=== PATIENT | female | born 1950 | race African-American/Black ===

== ENCOUNTER 2016-07-10 14:24 | Inpatient (IN) | payer OTHER ==
[~2016-07-10] VITALS: Ht 172.7 cm; Wt 121.3 kg
--- NOTE | ~2016-07-10 | HC ---
[facility] [place] [address] CONSULTATION Name: CYNTHIA FRANCOTA Room #: [address] [place] [address] IN M.R.#: [id number] Admission: 07/10/16 Attend Phys: Lida Dang MD Discharge: 07/12/16 Date of : 48 Report #: [id number] THIS REPORT FOR: //name// CC: Melina Dang DATE OF SERVICE: 07/11/2016 REASON FOR CONSULTATION: Status post kidney transplantation. REASON FOR PRESENTATION: Shortness of breath. HISTORY OF PRESENT ILLNESS: The patient is well known to me. She is a 66-year-old with past medical history of cadaveric renal transplantation in 2007. She is known to have chronic kidney disease with a baseline creatinine of around 2. She had end-stage renal disease due to diabetes mellitus. She had presented to the hospital numerous times in the past with urinary tract infections, fluid overload. She tells me that she has been having shortness of breath for the last few weeks. She also has gain significant some weight, her dry body weight is anywhere from 250-252, and her weight on presentation yesterday was 268. She noticed orthopnea. She also noticed excessive lower extremity edema. She has extensive past medical history including not limited to end-stage renal disease, renal transplantation, left ventricular hypertrophy with the last echo shows an ejection fraction around 60%. She tells me that she visited with the [facility] couple of months ago and she was taken off the spironolactone as she was extremely dehydrated. I was consulted to manage her CKD. On presentation to the emergency room, she was found to be in pulmonary edema and she was also found to have an elevated blood pressure, was admitted for further evaluation and management. PAST MEDICAL HISTORY: 1. Status post kidney transplantation cadaveric in 2007. 2. Diabetes mellitus. 3. Hypertension. 4. Repeat urinary tract infections. 5. AFib. 6. Status post abdominal lab weight loss surgery. 7. Abdominal wound infection and empyema, requiring thoracotomy. PAST SURGICAL HISTORY: 1. Status post thyroidectomy. 2. Hysterectomy. 3. Status post left AV fistula. 4. Previous right hemorrhagic stroke. 5. Obstructive sleep apnea. [facility] [address] [place] [address] CONSULTATION Name: ERIC FRANCO Room #: 205-P [facility] IN M.R.#: [id number] Admission: 07/10/16 Attend Phys: Lida Dang MD Discharge: 07/12/16 Date of : 48 Report #: [id number] ALLERGIES: SULFA, CODEINE, GABAPENTIN intolerance. SOCIAL HISTORY: She is a nonsmoker. No drug or alcohol abuse. MEDICATIONS: Reported medications: 1. Sodium bicarbonate. 2. NovoLog insulin: 3. Metoprolol. 4. Amiodarone. 5. Mycophenolate. 6. Tacrolimus. 7. Lisinopril. 8. Torsemide. 9. Levothyroxine. 10. Atorvastatin. 11. She has been taken off the spironolactone. REVIEW OF SYSTEMS: CONSTITUTIONAL: No fever or chills. CARDIOVASCULAR: Significant for orthopnea, dyspnea on exertion, shortness of breath. PULMONARY: No cough or hemoptysis. GASTROINTESTINAL: Significant weight gain. GENITOURINARY: No frequency, no urgency. MUSCULOSKELETAL: No back pain. NEUROLOGICAL: No headache, no dizziness. PHYSICAL EXAMINATION: GENERAL: The patient is alert, oriented, in no apparent distress. VITAL SIGNS: Most recent vital signs shows a blood pressure of 172/61, temperature 36.6, bedside pulse ox 91 on 2 liters by nasal cannula. HEAD AND NECK: No jugular venous distention, no bruit, no thyromegaly. CHEST: Decreased air entry bilaterally. CARDIOVASCULAR: Regular with no rub detected. ABDOMEN: Soft, nontender with no hepatosplenomegaly. LOWER EXTREMITIES: +3 edema. There is a right-sided posterior right chest wall lipoma. LABORATORY VALUES: Reviewed. Creatinine is a baseline at 2.2, potassium slightly low at 3.4. TSH with an elevated value at 4.1. Chest x-ray reviewed, mild pulmonary congestion is noted. ASSESSMENT, IMPRESSION, PLAN: 1. Pulmonary edema. [address] [address] CONSULTATION Name: ERIC FRANCO Room #: [facility] IN M.R.#: [id number] Admission: 07/10/16 Attend Phys: Lida Dang MD Discharge: 07/12/16 Date of : 48 Report #: [id number] 2. Significant fluid gain. 3. Hypertension urgency. 4. Hypokalemia. 5. Status post disease donor kidney transplantation. 6. Chronic kidney disease with a baseline creatinine of around 2.2. 7. Hypokalemia. 8. Diabetes mellitus. 9. The patient had very significant weight gain in the last few weeks. I agree with the Lasix IV for now if needed, we will switch to IV Lasix drip. 10. Daily body weight. 11. Resume her spironolactone. 12. Obtain a cardiac echo. 13. Resume her blood pressure medications. 14. Low salt diet. 15. Fluid restriction. 16. Resume all of her diabetic medications. 17. Maintained on current immune suppressive medications including CellCept and tacrolimus. 18. Resume her thyroid replacement. 19. From the renal perspective, she seems to be at her baseline when it comes to the kidney function; however, she will need further augmentation of her fluids and extracellular fluid volume expansion, status. <ELECTRONICALLY SIGNED> By: Manoj Hudson MD 07/15/16 0745 [id number] [id number] Fredy Brand MD /nt
--- NOTE | ~2016-07-10 | 2DMMODE ---
[facility] [place] [address] 2 D/M-MODE ECHOCARDIOGRAM Name: JOANERIC Room #: 205-P ADM IN M.R.#: [id number] Admission: 07/10/16 Attend Phys: Lida Dang Discharge: Date of : 48 Date of Service: 07/11/16 1222 Report #: [id number] THIS REPORT FOR: //name// APPROVED REPORT EXAM: Comprehensive 2D, Doppler, and color-flow Echocardiogram Patient Location: Bedside/Room 205 Blood Pressure: 172/61 mmHg HR: 65 bpm Rhythm: NSR Other Information Study Quality: Adequate Indications Dyspnea Congestive Heart Failure Hx: Afib, HTN, CVA, DM, morbid obesity 2D Dimensions RVDd: 41.79 mm LVEF(%): 57.82 (>50%) IVSd: 15.04 (7-11mm) LVOT Diam: 19.07 (18-24mm) LVDd: 47.41 mm PWd: 15.01 (7-11mm) Ascending Aorta: 30.57 mm LVDs: 32.98 (25-40mm) IVC: 24.00 mm Aortic Root: 30.00 mm Hernandez's LVEF: 57.82 % Volumes Left Atrial Volume (Systole) Single Plane 4CH: 89.96 mL Single Plane 2CH: 98.06 mL LA ESV Index: 43.00 mL/m2 Aortic Valve AoV Peak Paulie.: 2.32 m/s AO Peak Gr.: 21.57 mmHg LV Max P.75 mmHg LV Max: 1.56 m/s Mitral Valve MV PHT: 51.55 ms MV E Max Paulie.: 1.24 m/s E/A Ratio: 1.4 MV A Paulie.: 0.87 m/s MV Decel. Time: 177.76 ms [facility] [place] [address] 2 D/M-MODE ECHOCARDIOGRAM Name: ERIC FRANCO Room #: 205-P [facility] IN M.R.#: [id number] Admission: 07/10/16 Attend Phys: Lida Dang Discharge: Date of : 48 Date of Service: 07/11/16 1222 Report #: [id number] TDI E/Lateral E': 19.00 E/Medial E': 29.00 Pulmonary Valve PV Peak Paulie.: 1.23 m/s PV Peak Gr.: 6.05 mmHg Tricuspid Valve TR Peak Paulie.: 3.43 m/s RAP Estimate: 10.00 mmHg TR Peak Gr.: 47.00 mmHg RVSP: 57.00 mmHg Left Ventricle The left ventricle is normal size. There is normal LV segmental wall motion. Moderate concentric left ventricular hypertrophy. The left ventricular systolic function is normal. LVEF is 65%. Grade II - pseudonormal filling dynamics. Right Ventricle Right ventricle is borderline dilated. The right ventricular systolic function is normal. Atria Left atrium is moderately dilated. Right atrium is borderline dilated. Aortic Valve Aortic valve is calcified. Trace aortic regurgitation. There is no aortic valvular stenosis. Mitral Valve Mitral valve leaflets are thickened. Mild mitral annular calcification. Mild to moderate mitral regurgitation. Tricuspid Valve The tricuspid valve is normal in structure. There is mild tricuspid regurgitation. The right atrial pressure is estimated at 10 mmHg. There is moderate pulmonary hypertension with an estimated PAP of 57mmHg. Pulmonic Valve Pulmonic valve is not well visualized. Mild pulmonic regurgitation. Great Vessels The aortic root is normal in size. IVC is dilated and collapses >50% with inspiration. [facility] [address] [place] [address] 2 D/M-MODE ECHOCARDIOGRAM Name: FRANCOERCI Room #: [address] [place] [address] IN M.R.#: [id number] Admission: 07/10/16 Attend Phys: Lida Dang Discharge: Date of : 48 Date of Service: 07/11/16 1222 Report #: [id number] Pericardium There is no pericardial effusion. Right pleural effusion noted. <Conclusion> The left ventricle is normal size. Moderate concentric left ventricular hypertrophy. LVEF is 65%. Right ventricle is borderline dilated. Left atrium is moderately dilated. Right atrium is borderline dilated. Aortic valve is calcified. Trace aortic regurgitation. Mitral valve leaflets are thickened. Mild mitral annular calcification. Mild to moderate mitral regurgitation. There is mild tricuspid regurgitation. The right atrial pressure is estimated at 10 mmHg. There is moderate pulmonary hypertension with an estimated PAP of 57mmHg. <ELECTRONICALLY SIGNED> By: Mateo Hong MD 07/11/16 1222 122 122 Mateo Hong MD /INF
--- NOTE | ~2016-07-10 | HC ---
[facility] [place] [address] CONSULTATION Name: ERIC FRANCO Room #: [facility]- ADM IN M.R.#: [id number] Admission: 07/10/16 Attend Phys: Lida Dang MD Discharge: Date of : 48 Report #: [id number] THIS REPORT FOR: //name// CC: CONCEPCION Dang DATE OF SERVICE: 07/11/2016 HISTORY OF PRESENT ILLNESS: The patient is a 66-year-old single black female last seen in the hospital after she complained of being short of breath. The patient has an extensive and complicated past medical history. She has a long history of diabetes and hypertension. She was on hemodialysis for 4 years using the fistula in the left arm. However, she eventually underwent cadaveric renal transplant at [facility] in 2007. She has been diagnosed with hypertrophic cardiomyopathy in the past. Previous heart catheterization in 2007 apparently showed no significant coronary artery disease. She has been followed by my partner, Dr. Dagoberto Ryan. She has a history of paroxysmal atrial fibrillation and has been on chronic amiodarone. She last saw Dr. Ryan in the cardiology clinic last January when she was doing well. She is not very active. She also has a history of obesity. She weighed over 300 pounds. She apparently had lap band surgery in in the past and subsequently taken down. She does have a history of sleep apnea, but does not use CPAP. She has not been hospitalized since a year ago when she was admitted with urinary tract infection. The patient states that recently she had a cough and shortness of breath. She was felt to have flu. Because of increasing shortness of breath she finally came to the hospital yesterday and was admitted. She does have chest tightness, although it is not exertional. She notes occasional episodes where heart rate will increase, but she has had no syncope. PAST MEDICAL HISTORY: Otherwise significant for left thoracotomy for empyema in 2013. She had a hysterectomy, thyroidectomy that showed cancer. She has hypertension, diabetes, hyperlipidemia, hypertrophic cardiomyopathy, sleep apnea. MEDICATIONS: Consists of amiodarone, metoprolol, lisinopril, Lipitor, torsemide, aspirin, ranitidine, allopurinol, Singulair inhaler, insulin, Synthroid, ProAir, omeprazole, Prograf. ALLERGIES: SHE HAS ALLERGY TO PENICILLIN, CODEINE. FAMILY HISTORY: Her mother and brother suddenly. SOCIAL HISTORY: She is . Lives by herself in [place], [place]. She used to work for [employer]. No smoking or alcohol abuse. [facility] [address] [place] [address] CONSULTATION Name: ERIC FRANCO Room #: 205-P ADM IN M.R.#: [id number] Admission: 07/10/16 Attend Phys: Lida Dang MD Discharge: Date of : 48 Report #: [id number] REVIEW OF SYSTEMS: She apparently has had a stroke in the past with some left-sided leg weakness. She has no history of asthma. She does have sleep apnea. She has had a peptic ulcer. No liver disease. She has a history of renal transplant in the past. She had thyroid cancer. PHYSICAL EXAMINATION: GENERAL: Revealed an obese middle-aged black female lying in bed. She appeared in no distress. VITAL SIGNS: When she was admitted yesterday, she had a blood pressure of 200/80, pulse of 70, she was afebrile. HEENT: She was anicteric. Conjunctivae pink. Mucous membranes moist. NECK: Veins nondistended. ____ systolic murmur noted in the carotids. CHEST: Clear to auscultation. CARDIAC: Regular rate and rhythm, grade 3 systolic ejection murmur. ABDOMEN: Obese, soft, nontender. EXTREMITIES: Had 1+ pitting edema. Dorsalis pedis pulse could not be palpated. SKIN: Cool and dry. RADIOLOGICAL DATA: ECG showed a sinus rhythm, nonspecific ST and T-wave changes. Her workup yesterday, she had a chest x-ray that showed cardiomegaly, atelectasis, pleural effusions, mild pulmonary edema. LABORATORY DATA: She had sodium 145, potassium 3.4. Her BUN was 44, creatinine 2.2, glucose 109, magnesium 1.4, albumin 2.3. Troponin 0.04. BNP 5744. Her white blood cell count 6.7, hemoglobin 9.7, platelet count 354,000. IMPRESSION AND RECOMMENDATIONS: 1. Pulmonary edema. I would attempt diuresis. I would recommend a repeat echocardiogram. 2. History of atrial fibrillation, currently in sinus rhythm. I am concerned that the interstitial infiltrates likely represent interstitial lung disease. If interstitial infiltrates persist, I will consider discontinuing the amiodarone. The patient does not appear to be a very good candidate for a contrast study of her lung because of her chronic kidney disease. 3. Hypertension. The patient is on an SATHISH inhibitor and beta noelle. 4. Hyperlipidemia. The patient is on a statin drug. 5. Diabetes. 6. Previous cadaveric renal transplant. The patient has chronic kidney disease. The patient is followed by nephrology. 7. Chronic immunosuppression. 8. Hypertrophic cardiomyopathy. Recommend repeat echocardiogram. There is a family history of sudden , although the patient does not appear to be a very good candidate for defibrillator because of her multiple medical problems. 9. History of sleep apnea. The patient is not using her CPAP. 10. History of morbid obesity. Previous lap band surgery. 11. History of thyroid cancer. [facility] [address] [place] [address] CONSULTATION Name: ERIC FRANCO Room #: 205-P [facility] IN M.R.#: [id number] Admission: 07/10/16 Attend Phys: Lida Dang MD Discharge: Date of : 48 Report #: [id number] 12. Anemia. No history of bleeding. 13. Previous stroke. By: [id number] Miki Aguiar MD, FACC /nt
--- NOTE | ~2016-07-10 | H ---
[facility] [place] [place] [address] HISTORY AND PHYSICAL Name: ERIC FRANCO Room #: 205-P ADM IN M.R.#: [id number] Admission: 07/10/16 Attend Phys: Lida Dang MD Discharge: Date of : 48 Report #: [id number] THIS REPORT FOR: //name// CC: Melina Dang DATE OF SERVICE: 07/10/2016 CHIEF COMPLAINT: Shortness of breath. HISTORY OF PRESENT ILLNESS: The patient is a 66-year-old female with multiple medical problems, including chronic hypertension, chronic kidney disease, status post kidney transplant, who comes to the hospital with 2-day duration of shortness of breath. The patient also developed chest pressure. In the emergency room, she was found to have pulmonary edema on chest x-ray. The patient had undetectable Troponin, and unremarkable EKG. She was started on Lasix, and her condition started to improve. Her blood pressure was also found to be 217/67. Currently, the patient's condition is better. Her breathing has improved. She is not in respiratory distress. She feels more comfortable, and chest pressure has resolved. Last cardiac echo available to us, it is from 2013, that showed normal ejection fraction. PAST MEDICAL HISTORY: 1. End-stage renal disease, status post kidney transplant 9 years ago. 2. History of paroxysmal atrial fibrillation. 3. Diabetes mellitus type 2, chronically out of control. 4. Hypertension. 5. Morbid obesity. 6. History of CVA with residual left-sided weakness. 7. Oates's palsy , history of left facial weakness. 8. COPD. 9. Obstructive sleep apnea. 10. Gout. 11. Asthma. 12. Status post thyroidectomy for goiter, on thyroid replacement. CURRENT MEDICATIONS: Reviewed and documented in the patient's chart. Please refer to the medication reconciliation section. FAMILY HISTORY: Reviewed and not pertinent to the patient's current condition. [facility] [address] [place] [address] HISTORY AND PHYSICAL Name: ERIC FRANCO Room #: [address] [place] [address] [place] [facility].#: [id number] Admission: 07/10/16 Attend Phys: Lida Dang MD Discharge: Date of : 48 Report #: [id number] SOCIAL HISTORY: The patient is a smoker. She does not drink alcohol. REVIEW OF SYSTEMS: As above in HPI section, all others negative. PHYSICAL EXAMINATION: GENERAL: The patient is an elderly female who is in no apparent distress. VITAL SIGNS: Blood pressure is 217/67, heart rate is 87, respiration is 16, and temperature is 97.3. HEENT: Pupils are equal. Eye movements are normal. Sclerae are anicteric. Oral mucosa is moist. NECK: The patient is status post thyroidectomy. No neck masses are palpated. The patient has JVD. Carotid bruits are not appreciated. RESPIRATORY: Chest moves symmetrically with breathing. The patient has fine crackles at the bases. CARDIOVASCULAR: The patient has regular rhythm and rate. I cannot appreciate murmurs, gallops, or rubs. GASTROINTESTINAL: Abdomen is soft, nondistended and nontender. Bowel sounds are present. Hepatomegaly or splenomegaly is not palpated. EXTREMITIES: The patient has 2+ pitting edema on the legs. Range of motion is normal. NEUROLOGIC: The patient is alert and oriented x3. Her examination is nonfocal. SKIN: The patient has no skin lesions. Skin is dry and warm. LABORATORY DATA: Hemoglobin is chronically low, currently at 9.8. White count is normal. Creatinine is 1.7, which is the patient's baseline. Urinalysis shows findings suggestive of UTI. On EKG, the patient has normal sinus rhythm, without acute ST segment changes. ASSESSMENT AND PLAN: 1. Congestive heart failure exacerbation. The patient is already started on Lasix, and nitroglycerin paste. Diuresis and oxygen will be continued. Blood pressure will be lowered. As noted, the patient already feels better. We will obtain cardiac echo. The patient's real estate attorney is already notified. Consultation is very much appreciated. 2. Accelerated hypertension. Again, the patient is on nitro paste. She had chest pressure earlier, that has resolved. Troponin is undetectable, and EKG shows no acute findings. We will use hydralazine, and we will consider Cardene drip, if the patient's condition does not improve soon. 3. Diabetes mellitus type 2, reportedly out of control. We are checking hemoglobin A1c. Home insulin regimen will be resumed. 4. Hypothyroidism, status post thyroidectomy years ago for goiter, replaced with levothyroxine. We will check TSH to evaluate adequacy of thyroid hormone replacement. 5. Status post kidney transplant about 9 years ago. Outpatient medications will be continued. The patient is on antirejection drugs. Her creatinine is at baseline and stable, 1.7. [facility] [address] [place] [address] HISTORY AND PHYSICAL Name: ERIC FRANCO Room #: 205-P ADM IN Miguel#: [id number] Admission: 07/10/16 Attend Phys: Lida Dang MD Discharge: Date of : 48 Report #: [id number] 6. Deep venous thrombosis prophylaxis. We will use renally readjusted subQ Lovenox. By: [id number] Lida Dang MD /nt
--- NOTE | ~2016-07-10 | EKG ---
[address] [address] ELECTROCARDIOGRAM REPORT Name: ERIC FRANCO Room #: 205- ADM IN M.R.#: [id number] Admission: 07/10/16 Attend Phys: Lida Dang MD Discharge: Date of : 48 Report #: [id number] THIS REPORT FOR: //name// [facility] ED Test Date: 2016-07-10 Test Time: 14:40:02 Pat Name: ERIC FRANCO Department: Room: [facility] Gender: F Tooling Manager: BECKY : 1950 Requested By: Trav Ortiz Order Number: [id number] MD: Pritesh Chase Measurements Intervals [place] Rate: 70 P: -4 VA: 192 QRS: 23 QRSD: 100 T: -64 QT: 434 QTc: 469 Interpretive Statements Sinus rhythm Nonspecific ST and T wave abnormality Baseline wander in lead(s) II,III,aVF Compared to ECG 04/11/2016 21:32:29 No significant change was found Electronically Signed On 07-11-2016 8:24:19 CDT by Pritesh Chase [email or web address] <ELECTRONICALLY SIGNED> By: Pritesh Chase MD, [facility] 07/11/16 0824 1440 1440 Pritesh Chase MD, [facility] /EPI
[~2016-07-10 14:24] MED LIST: ACETAMINOPHEN500 M1 PO; ADULT LOW DOSE81 MG PO; ADVAIR HFA115 MCG/21 INH; ALDACTONE25 MG PO; ALLOPURINOL 10100 M1 PO; ALLOPURINOL 10100 M2 PO; AMIODARONE PO; AMLODIPINE BESYL5 MG PO; ANTACID600 MG PO; ANTACID650 MG PO; APAP500 PO; ASPIRIN EC325 M1 PO; ASPIRIN325 PO; ATIVAN1 MG PO; ATORVASTATIN CA40 MG PO; B-12250 MCG PO; BAYER CHEWABLE81 MG PO; BISACODYL SUPP10 MG RECTAL; CALCIUM 1,0001 EACH PO; CATAPRES-TTS 10.1 MG; CEFTIN 250 MG250 MG PO; CEFTRIAXON1 GM/50 ML IV; CELLCEPT 250 M250 M1 PO; CELLCEPT 250 M250 MG PO; CELLCEPT500 MG PO; CIPRO250 MG/51 PO; CLARITIN10 MG PO; CLONAZEPAM 1 MG1 M1 PO; CLONIDINE0.1 PO; COLACE100 MG PO; COLCHICINE PO; DELTA D3400 UNIT PO; DEMADEX20 MG PO; DILTIAZEM 24HR180 M1 PO; DILTIAZEM 24HR240 M1 PO; DURICEF PO; ELEMENTAL CALC600 MG PO; FAMOTIDINE 20 M20 MG PO; FLEXERIL PO; FLONASE 0.05%50 MCG NASAL; FLONASE16 GM INH; HEARTBURN RELIE75 M1; HECORIA0.5 MG PO; HECORIA1 MG PO; HYDROCERIN CREA1 JAR TOP; HYDROCHLOROTHIA25 M1 PO; HYDROCODON-ACE1 EAC7 PO; K-DUR 20 MEQ T20 MEQ PO; LANSOPRAZOLE30 M1 PO; LANTUS SUBQ; LANTUSSOLASTAR; LEVAQUIN 250 M250 MG PO; LEVEMIR SUBQ; LEVOTHYROXIN0.112 M1 PO; LEVOTHYROXIN0.125 M1 PO; LEVOTHYROXIN0.137 M1 PO; LEVOTHYROXINE 0.1 MG PO; LEVOTHYROXINE0.2 M1 PO; LIDODERM 5%1 PATC1 TRANSDERM; LIDODERM 5%1 PATCH TRANSDERM; LIPITOR 20 MG T20 M1 PO; LISINOPRIL20 MG PO; LISINOPRIL40 MG PO; LOPRESSOR100 MG PO; LORTAB 7.5-3251 EACH PO; LOTRISONE CREAM15 GM TP; MACRODANTIN100 MG PO; MEVACOR40 MG PO; MULTI VITAMIN1 EACH PO; MULTIVITAMINS PO; MULTIVITAMINS1 EAC7 PO; NORVASC 5 MG TAB5 MG PO; NORVASC10 MG PO; NOVOLOG100 UNIT/1 SQ; NOVOLOG100 UNIT/1 SUBQ; NYSTATIN 1100000 U/M SW&SWALLOW; NYSTATIN 1100000 U/M SWISH&SPIT; OMEPRAZOLE 20 M20 MG PO; OMEPRAZOLE20 M2 PO; PACERONE 200 M200 M1 PO; PAIN & FEVER325 MG PO; PHENADOZ25 MG RC; PHENERGAN 25 MG25 M1 PO; PRAVACHOL40 MG PO; PRINIVIL40 MG PO; PROAIR HFA8.5 GM; PROAIR HFA8.5 GM INH; PROGRAF1 MG PO; PROTONIX 20 MG20 MG; PROTONIX40 M2 PO; PULMICORT0.25 MG/1 INH; RANITIDINE 150150 M1 PO; RANITIDINE 150150 MG PO; SINGULAIR 10 MG10 M1 PO; SLOW RELEASE I142 M1 PO; SYMBICORT160 MCG/4. INH; SYMBICORT80 MCG/4.1 INH; SYNTHROID125 MCG PO; TACROLIMUS1 MG PO; TOPROL XL100 MG PO; TOPROL XL50 MG; TOPROL XL50 MG PO; TORSEMIDE20 MG PO; TYLENOL325 MG PO; ULTRAM 50MG TAB50 MG PO; VITAMIN B-12100 MC1 PO; VITAMIN B-12250 MC2 PO; VITAMIN B-12250 MCG PO; VITAMIN D1000 UNI1 PO; VITAMIN D22000 UNIT PO; VITAMIN D32000 UNI1 PO; ZANTAC 150MG T150 M1 PO; ZANTAC 150MG T150 MG PO
[2016-07-10 14:29] VITALS: BP 231/78
[2016-07-10 15:53] LABS: ABSOLUTE NEUTROPHILS 4.8 thou/uL (1.4-8.2); BASOPHILS 0.5 % (0.0-2.0); HEMATOCRIT 31.8 % (37.0-47.0); HEMOGLOBIN 9.8 gm/dL (12.0-15.0); LYMPHOCYTES 14.7 % (24.0-44.0); MCHC 30.9 g/dL (28.0-37.0); MCV 84.3 fL (80.0-100.0); MONOCYTES 9.7 % (1.0-8.0); PLATELET COUNT 298 thou/uL (150-400); POLYS 74.1 % (36.0-66.0); RBC 3.77 mil/uL (4.20-5.00); RDW 16.9 % (10.5-14.5); WBC 6.4 thou/uL (4.0-11.0)
[2016-07-10 15:58] LABS: MANUAL DIFF NO
[2016-07-10 16:05] LABS: ANION GAP 11 mmol/L (7-16); BUN 38 mg/dL (7-18); CALCIUM 7.2 mg/dL (8.5-10.1); CHLORIDE 114 mmol/L (98-107); CO2 18 mmol/L (21-32); CREATININE 1.7 mg/dL (0.6-1.3); GLUCOSE 337 mg/dL (70-99); POTASSIUM 3.6 mmol/L (3.5-5.1); SODIUM 143 mmol/L (136-145)
[2016-07-10 16:16] LABS: ALBUMIN 2.3 g/dL (3.4-5.0); ALKALINE PHOSPHATASE 78 U/L (46-116); MAGNESIUM 1.4 mg/dL (1.8-2.4); NT-PRO BRAIN NAT PEPTIDE 4494 pg/mL (<300); SGOT 17 U/L (15-37); SGPT 12 U/L (30-65); TOTAL BILIRUBIN 0.5 mg/dL (<0.1-1.0); TOTAL PROTEIN 5.1 g/dL (6.4-8.2); TROPONIN-I < 0.04 ng/mL (<0.04-0.07)
[2016-07-10 18:05] VITALS: BP 217/67
[2016-07-10 19:42] VITALS: BP 170/55
[2016-07-10 23:40] VITALS: BP 211/85
[2016-07-11 01:07] LABS: GLYCOHEMOGLOBIN (HGB A1C) 8.6 % (4.8-5.6)
[2016-07-11 03:38] VITALS: BP 160/56
[2016-07-11 04:13] LABS: HEMATOCRIT 30.6 % (37.0-47.0); HEMOGLOBIN 9.7 gm/dL (12.0-15.0); MCH 25.9 pg (26.0-34.0); MCHC 31.6 g/dL (28.0-37.0); MCV 82.1 fL (80.0-100.0); PLATELET COUNT 354 thou/uL (150-400); RBC 3.73 mil/uL (4.20-5.00); RDW 17.3 % (10.5-14.5); WBC 6.7 thou/uL (4.0-11.0)
[2016-07-11 04:19] LABS: MANUAL DIFF YES
[2016-07-11 04:26] LABS: CREATININE 2.2 mg/dL (0.6-1.3); POTASSIUM 3.4 mmol/L (3.5-5.1)
[2016-07-11 04:31] LABS: CALCIUM 9.5 mg/dL (8.5-10.1)
[2016-07-11 06:20] LABS: ABSOLUTE NEUTROPHILS 5.2 thou/uL (1.4-8.2); TOTAL CELL COUNT 100
[2016-07-11 06:21] LABS: ANISOCYTOSIS 1+
[2016-07-11 07:45] VITALS: BP 172/61
[2016-07-11 12:18] VITALS: BP 182/61
[2016-07-11 15:38] VITALS: BP 181/69
[2016-07-11 19:52] VITALS: BP 172/66
[2016-07-12 00:06] VITALS: BP 185/69
[2016-07-12 03:18] LABS: ABSOLUTE NEUTROPHILS 3.7 thou/uL (1.4-8.2); EOSINOPHILS 1.4 % (0.0-3.0); HEMATOCRIT 30.7 % (37.0-47.0); HEMOGLOBIN 9.6 gm/dL (12.0-15.0); LYMPHOCYTES 23.5 % (24.0-44.0); MCHC 31.3 g/dL (28.0-37.0); MCV 83.1 fL (80.0-100.0); MONOCYTES 11.4 % (1.0-8.0); PLATELET COUNT 333 thou/uL (150-400); POLYS 62.7 % (36.0-66.0); RDW 17.6 % (10.5-14.5); WBC 5.9 thou/uL (4.0-11.0)
[2016-07-12 03:24] LABS: MANUAL DIFF NO
[2016-07-12 03:48] LABS: ALBUMIN 2.7 g/dL (3.4-5.0); CREATININE 2.5 mg/dL (0.6-1.3); PHOSPHORUS 2.6 mg/dL (2.5-4.9); POTASSIUM 3.4 mmol/L (3.5-5.1)
[2016-07-12 04:46] VITALS: BP 166/88
[2016-07-12 07:27] VITALS: BP 157/60
[2016-07-12 11:35] VITALS: BP 172/61
[2016-07-12] MEDS ORDERED: LEVEMIR SUBQ (12:45)
[2016-07-12 12:51] VITALS: BP 172/61
[2016-07-12 14:29] VITALS: BP 172/61
== END 2016-07-12 16:00 | disposition home or self-care (01) | DRG 682 ==
LOC: ER 14:24 → 2N 17:14 → EROBS 17:14 → 2N 18:06
PROVIDERS: Emergency Medicine; Hospitalist; Internal Medicine Endocrinology, Diabetes & Metabolism
DX: N17.9 Acute kidney failure, unspecified (principal); I50.43 Acute on chronic combined systolic (congestive) and diastolic (congestive) heart failure; Z94.0 Kidney transplant status; Z68.41 Body mass index [BMI] 40.0-44.9, adult; I69.954 Hemiplegia and hemiparesis following unspecified cerebrovascular disease affecting left non-dominant side; I42.2 Other hypertrophic cardiomyopathy; I11.0 Hypertensive heart disease with heart failure; E11.9 Type 2 diabetes mellitus without complications; E66.01 Morbid (severe) obesity due to excess calories; I48.0 Paroxysmal atrial fibrillation; J44.9 Chronic obstructive pulmonary disease, unspecified; K21.9 Gastro-esophageal reflux disease without esophagitis; E78.5 Hyperlipidemia, unspecified; G47.33 Obstructive sleep apnea (adult) (pediatric); E89.0 Postprocedural hypothyroidism; I16.0 Hypertensive urgency; E87.6 Hypokalemia; M10.9 Gout, unspecified; D64.9 Anemia, unspecified; F17.210 Nicotine dependence, cigarettes, uncomplicated; Z79.899 Other long term (current) drug therapy; Z79.82 Long term (current) use of aspirin; Z87.81 Personal history of (healed) traumatic fracture; Z90.710 Acquired absence of both cervix and uterus; Z88.6 Allergy status to analgesic agent; Z88.0 Allergy status to penicillin; Z88.2 Allergy status to sulfonamides; Z85.850 Personal history of malignant neoplasm of thyroid
CPT/HCPCS: 10194

== ENCOUNTER 2017-04-09 15:54 | Emergency (ER) | payer OTHER ==
[~2017-04-09] VITALS: Ht 172.7 cm; Wt 136.1 kg
--- NOTE | ~2017-04-09 | EKG ---
[place] [address] [place] [address] ELECTROCARDIOGRAM REPORT Name: ERIC FRANCO Room #: DEP Miguel#: [id number] Admission: 04/09/17 Attend Phys: Discharge: 04/09/17 Date of : 48 Report #: [id number] THIS REPORT FOR: //name// [facility] ED Test Date: 2017-04-09 Test Time: 16:40:32 Pat Name: ERIC FRANCO Department: Room: Gender: F Hydraulic Jack Adjuster: Olivia AVILA : 1950 Requested By: Cleve Salazar Order Number: [id number] MD: Pritesh Chase Measurements Intervals [place] Rate: 68 P: 25 RI: 203 QRS: 12 QRSD: 105 T: QT: 420 QTc: 447 Interpretive Statements Sinus rhythm Nonspecific ST and T wave abnormality Compared to ECG 07/10/2016 14:40:02 No significant change was found Electronically Signed On 04-10-2017 8:19:01 PREMIUM REPRESENTATIVE by Pritesh Chase [email or web address] <ELECTRONICALLY SIGNED> By: Pritesh Chase MD, [facility] 04/10/17 0819 [facility] Pritesh Chase MD, FACC /EPI
[2017-04-09 17:10] LABS: ABSOLUTE NEUTROPHILS 2.1 thou/uL (1.4-8.2); BASOPHILS 1.1 % (0.0-2.0); EOSINOPHILS 3.1 % (0.0-3.0); HEMATOCRIT 34.1 % (37.0-47.0); HEMOGLOBIN 10.7 gm/dL (12.0-15.0); LYMPHOCYTES 27.5 % (24.0-44.0); MCH 25.5 pg (26.0-34.0); MCHC 31.3 g/dL (28.0-37.0); MCV 81.3 fL (80.0-100.0); MONOCYTES 11.9 % (1.0-8.0); PLATELET COUNT 234 thou/uL (150-400); POLYS 56.4 % (36.0-66.0); RBC 4.19 mil/uL (4.20-5.00); RDW 16.2 % (10.5-14.5); WBC 3.6 thou/uL (4.0-11.0)
[2017-04-09 17:11] LABS: MANUAL DIFF NO
[2017-04-09 17:18] LABS: ANION GAP 11 mmol/L (7-16); BUN 56 mg/dL (7-18); CALCIUM 9.6 mg/dL (8.5-10.1); CHLORIDE 111 mmol/L (98-107); CO2 25 mmol/L (21-32); CREATININE 2.5 mg/dL (0.6-1.0); GLUCOSE 92 mg/dL (74-106); POTASSIUM 3.7 mmol/L (3.5-5.1); SODIUM 147 mmol/L (136-145)
[2017-04-09 17:25] LABS: APTT 24.7 Seconds (24.5-32.8); PROTIME 10.1 Seconds (9.3-11.4)
[2017-04-09 17:26] LABS: URINE BILIRUBIN NEGATIVE (Negative); URINE BLOOD TRACE (Negative); URINE COLOR YELLOW; URINE GLUCOSE-RANDOM* NEGATIVE (Negative); URINE KETONES NEGATIVE (Negative); URINE PROTEIN (DIPSTICK) 2+ (Negative); URINE SPECIFIC GRAVITY 1.015 (1.005-1.035); URINE UROBILINOGEN 0.2 E.U./dl (0.2-1.0)
[2017-04-09 17:27] LABS: URINE LEUKOCYTES-REFLEX TRACE (Negative)
[2017-04-09 17:27] LABS: ALBUMIN 3.3 g/dL (3.4-5.0); ALKALINE PHOSPHATASE 162 U/L (46-116); MAGNESIUM 2.1 mg/dL (1.8-2.4); SGOT 18 U/L (15-37); SGPT 19 U/L (30-65); TOTAL BILIRUBIN 0.4 mg/dL (<0.1-1.0); TOTAL PROTEIN 7.1 g/dL (6.4-8.2); TROPONIN-I < 0.04 ng/mL (<0.06)
[2017-04-09] MEDS ORDERED: CIPROFLOXACIN500 M1 PO (17:41)
[2017-04-09 17:42] LABS: CASTS None Seen /LPF (None Seen); CRYSTALS None Seen /LPF (None Seen); SQUAMOUS 0-3 Few /LPF (0-3); URINE RBC 0-2 Rare /HPF (0-2); URINE WBC-REFLEX 6-15 Few /HPF (0-5)
== END 2017-04-09 18:45 | disposition home or self-care (01) ==
LOC: ER 15:54
PROVIDERS: Emergency Medicine
DX: I13.0 Hypertensive heart and chronic kidney disease with heart failure and stage 1 through stage 4 chronic kidney disease, or unspecified chronic kidney disease (principal); E11.22 Type 2 diabetes mellitus with diabetic chronic kidney disease; I50.22 Chronic systolic (congestive) heart failure; N18.9 Chronic kidney disease, unspecified; G81.90 Hemiplegia, unspecified affecting unspecified side; N39.0 Urinary tract infection, site not specified; I87.2 Venous insufficiency (chronic) (peripheral); E66.01 Morbid (severe) obesity due to excess calories; G51.0 Bell's palsy; K21.9 Gastro-esophageal reflux disease without esophagitis; Z90.710 Acquired absence of both cervix and uterus; J44.9 Chronic obstructive pulmonary disease, unspecified; G81.94 Hemiplegia, unspecified affecting left nondominant side; Z98.890 Other specified postprocedural states; Z86.73 Personal history of transient ischemic attack (TIA), and cerebral infarction without residual deficits; Z88.5 Allergy status to narcotic agent; Z88.8 Allergy status to other drugs, medicaments and biological substances; Z88.0 Allergy status to penicillin; Z88.2 Allergy status to sulfonamides

== ENCOUNTER 2017-05-05 13:39 | Inpatient (IN) | payer OTHER ==
[~2017-05-05] VITALS: Ht 175.3 cm; Wt 121.2 kg
[2017-05-05] VITALS (20 sets, daily range): BP systolic 111–263; BP diastolic 43–148
--- NOTE | ~2017-05-05 | HC ---
[facility] [place] [address] CONSULTATION Name: ERIC FRANCO Room #: [facility] IN M.R.#: [id number] Admission: 05/05/17 Attend Phys: Sarbjit Sandoval MD Discharge: Date of : 48 Report #: [id number] THIS REPORT FOR: //name// CC: Melina Sandoval REASON FOR CONSULTATION: Kidney transplantation. REASON FOR PRESENTATION: Seizure disorder. HISTORY OF PRESENT ILLNESS: The patient is a well-known patient to me. She sees ____ in our clinic. She is known to have chronic ____ attributed to end-stage renal disease due to diabetes mellitus. She runs a baseline creatinine of around 2. She is maintained on dual immunosuppressive medications including Prograf and mycophenolate. She has had numerous hospitalizations for fluid overload, urinary tract infections in the past. She was recently treated for flu, viral infection with Tamiflu per the family. She presented last night with what seems to be status epilepticus and workup was initiated. Note, she has a low grade temperature. The patient was admitted to the ICU after being found to have an extremely high blood sugar with an extremely high blood pressure and workup has been initiated. Creatinine on presentation was above baseline. As I have stated, she is on dual immunosuppression medications for her kidney transplantation. MRI has been done. LP had also been done. Infectious Disease, Neurology, Pulmonary are on the case. PAST MEDICAL HISTORY: 1. Status post kidney transplantation in 2007. 2. Acute renal tract infections. 3. AFib. 4. Status post abdominal lap weight loss surgery. 5. Abdominal wound infection. 6. Empyema requiring thoracotomy. 7. Hypertension. PAST SURGICAL HISTORY: 1. Thyroidectomy. 2. Hysterectomy. 3. Left AV fistula. 4. Kidney transplantation. ALLERGIES: SULFA, CODEINE and GABAPENTIN intolerance. SOCIAL HISTORY: Nonsmoker. No drug or alcohol abuse. MEDICATIONS: 1. Sodium bicarbonate. 2. Amiodarone. [facility] [address] [place] [address] CONSULTATION Name: CYNTHIA FRANCOTA Room #: [address] [place] [address] [place] .R.#: [id number] Admission: 05/05/17 Attend Phys: Sarbjit Sandoval MD Discharge: Date of : 48 Report #: [id number] 3. Mycophenolate. 4. Tacrolimus. 5. Lisinopril. 6. Levothyroxine. 7. Atorvastatin. REVIEW OF SYSTEMS: Unobtainable given the fact that the patient is currently intubated due to status epilepticus and no family around. PHYSICAL EXAMINATION: GENERAL: She is intubated and sedated. VITAL SIGNS: Blood pressure values were reviewed, most recent blood pressure is 130/70; however, she did have an extremely high blood pressure value on presentation. She is currently afebrile. She did have a low grade temperature on presentation. HEAD AND NECK: ET tube in place. CHEST: No crackles. CARDIOVASCULAR: No rub. ABDOMEN: Soft, nontender. LOWER EXTREMITIES: No edema. LABORATORY DATA: Reviewed. Creatinine is up to 3. Mild leukocytosis present. IMAGING: Chest x-ray reviewed, no acute pulmonary edema. MRI ____. ASSESSMENT, IMPRESSION AND PLAN: 1. Status post kidney transplantation. 2. Status epilepticus. 3. Hyperosmolar status with blood sugar of 900 on presentation. 4. Hypertensive urgency. 1. Discussed with Dr. Major. From the renal perspective, the patient will need to be back on her medications. Those were ordered. 2. Continue with fluid resuscitation for now. 3. Initiate workup for status epilepticus including MRI, LP. 4. ID consultation. 5. I discussed with Dr. Major, the possibility of Prograf in view of seizure; however, he thinks that her seizure disorder is well explained by the hyperosmolar status due to high blood sugar and by the hypertensive urgency. She is currently maintained on antiepileptic medications. He was okay with resuming her medications including the Prograf and the mycophenolate. 6. Insulin drip. 7. When she wakes up, we will have to discuss with her the group home care regarding her immunosuppressive medications given the extremely high blood sugar [address] [address] CONSULTATION Name: ERIC FRACNO Room #: 241-P ADM IN M.R.#: [id number] Admission: 05/05/17 Attend Phys: Sarbjit Sandoval MD Discharge: Date of : 48 Report #: [id number] on presentation, which is well linked to the Prograf. We will also discuss the possibility of Prograf in view of seizures for now. Given the fact that the patient's kidney function is deteriorating and worse than her baseline, I will not plan on any changes at the current time. 8. We will continue to follow along. <ELECTRONICALLY SIGNED> By: Fredy Brand MD 05/07/17 0937 1117 [id number] Fredy Brand MD /nt
--- NOTE | ~2017-05-05 | EEG ---
[facility] [place] [address] ELECTROENCEPHALOGRAM Name: ERIC FRANCO Room #: [facility] IN M.R.#: [id number] Admission: 05/05/17 Attend Phys: Sarbjit Sandoval MD Discharge: Date of : 48 Report #: [id number] THIS REPORT FOR: //name// CC: Melina Sandoval DATE OF SERVICE: 05/05/2017 This patient is being evaluated for the possibility of seizure. EEG was done by placing the electrodes by standard 10-20 system of electrode placement. Both referential and sequential montages were used for recording. A lot of artifact is present, making the interpretation of this EEG very difficult. Background activity in this patient appeared to be about 7 Hz and 25 microvolt. No active epileptiform activity was noticed. Photic stimulation was unremarkable. IMPRESSION: This patient's EEG is masked by a lot of artifact and is very difficult to interpret. There is no active epileptiform activity noticed during this EEG. Thank you very much for this referral. <ELECTRONICALLY SIGNED> By: Smith Major MD 05/09/172001 34 48 Smith Major MD /nt
--- NOTE | ~2017-05-05 | EEG ---
[facility] [place] [address] ELECTROENCEPHALOGRAM Name: ERIC FRANCO Room #: 241-P [facility] IN M.R.#: [id number] Admission: 05/05/17 Attend Phys: Sarbjit Sandoval MD Discharge: Date of : 48 Report #: [id number] THIS REPORT FOR: //name// CC: Melina Sandoval DATE OF SERVICE: 05/08/2017 This patient is being evaluated for seizure. EEG is not much artifact at this time. It was done by placing the electrode by standard 10-20 system of electrode placement. Both referential and sequential montages were used for recording. Background activity in this patient's EEG is about 7 Hz and 30 microvolt. It is a symmetrical activity. Photic stimulation is unremarkable. No active epileptiform activity was noticed. IMPRESSION: This patient's EEG does not demonstrate any clear-cut epileptiform activity. It is consistent with encephalopathy. <ELECTRONICALLY SIGNED> By: Smith Major MD 05/09/172001 1756 181 Smith Major MD /nt
--- NOTE | ~2017-05-05 | HC ---
[facility] [place] [address] CONSULTATION Name: ERIC FRANCO Room #: [facility] IN M.R.#: [id number] Admission: 05/05/17 Attend Phys: Sarbjit Sandoval MD Discharge: Date of : 48 Report #: [id number] THIS REPORT FOR: //name// CC: Melina Sandoval TYPE OF REPORT: Pulmonary consultation. REFERRAL PHYSICIAN: Sarbjit Sandoval M.D. REASON FOR REFERRAL: Status epilepticus and acute respiratory failure. HISTORY OF PRESENT ILLNESS: The patient is a 66-year-old -[place] female who was brought to the Emergency Room with status epilepticus. The patient was intubated to protect the airways. A pulmonary consultation was requested. She was doing fairly well until approximately sometime yesterday when she was checked by a family member. She was found to be seizing. 911 was called. When the paramedics arrived, the patient was actively seizing. She had vomitus around her. She was brought to the Emergency Room. Presently, she is intubated. 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 PAST SURGICAL HISTORY: As mentioned above including left leg fracture in 2006, hysterectomy, thyroidectomy and prior fistula placement for hemodialysis in the past. ALLERGIES: CODEINE, GABAPENTIN, PENICILLIN and SULFA, reactions unspecified. HOME MEDICATIONS: Reviewed. FAMILY HISTORY: Noncontributory. SOCIAL HISTORY: No tobacco or alcohol use. REVIEW OF SYSTEMS: Deferred. PHYSICAL EXAMINATION: GENERAL: The patient is intubated. [facility] [address] [place] [address] CONSULTATION Name: ERIC FRANCO Room #: [facility] IN [facility]#: [id number] Admission: 05/05/17 Attend Phys: Sarbjit Sandoval MD Discharge: Date of : 48 Report #: [id number] VITAL SIGNS: Temperature is 98.9 degrees Fahrenheit, pulse is 77, respiratory rate is 20, blood pressure 114/44 mmHg and saturation 100%. HEENT: Normocephalic and atraumatic. NECK: Supple, without lymphadenopathy or thyromegaly. CHEST: Breath sounds are good bilaterally without any rales or wheezes. CARDIOVASCULAR: Normal S1 and S2. No murmurs or gallop. There is no JVD. There is no carotid bruit. Pulses are 2+ and 4+ bilaterally. ABDOMEN: Soft and nontender. No organomegaly or masses felt. GENITOURINARY: Deferred. RECTAL: Deferred. EXTREMITIES: There is no edema, cyanosis or clubbing. NEUROLOGICAL: Deferred as the patient is now sedated. LABORATORY DATA: Influenza A and B is negative. Procalcitonin level 0.16. C-reactive protein is normal. Sed rate was 35. Sodium 146, potassium 3.7, chloride 110, CO2 25, BUN is 75, creatinine is 4.2 and glucose 106. WBC 14,200; hemoglobin 10.5 and platelets are normal. Arterial blood gas revealed pH 7.37, pCO2 of 41, pO2 of 102 on FIO2 of 60%. RADIOLOGICAL DATA: CT head shows no acute ischemic changes or acute findings. Acute paranasal sinusitis is noted. CT spine was grossly unremarkable. Lumbar puncture was grossly unremarkable. EEG was felt to be difficult to interpret. MRI of the head shows scattered white matter disease, no acute intracranial abnormalities, bilateral maxillary and sphenoid and ethmoid sinusitis. IMPRESSION: 1. Acute hypercapnic hypoxic respiratory failure in this 66-year-old -[place]an female due to seizure disorder. New-onset seizure disorder felt to be related to hypoglycemia and hypertension, findings were unremarkable. 2. Diabetic ketoacidosis. 3. Hypertension, uncontrolled. 4. End-stage renal disease, status post renal transplantation in 2007, on immunosuppressive therapy. 5. Diabetes mellitus type 2. 6. Hypertension. 7. History of paroxysmal atrial fibrillation. 8. History of cerebrovascular accident with left-sided weakness. 9. Gastroesophageal reflux disease. 10. Chronic obstructive pulmonary disease. 11. History of Oates's palsy affecting the right side. RECOMMENDATIONS: We will continue mechanical ventilation. We will await further workup regarding a new-onset seizure. Correct electrolyte abnormalities including DKA. DVT and GI prophylaxis will be addressed. [address] [address] CONSULTATION Name: ERIC FRANCO Room #: 241-P ADM IN M.R.#: [id number] Admission: 05/05/17 Attend Phys: Sarbjit Sandoval MD Discharge: Date of : 48 Report #: [id number] Thank you for this consultation. <ELECTRONICALLY SIGNED> By: Jaime Dockery MD 05/07/17 1548 1624 0135 Jaime Dockery MD /sunday
--- NOTE | ~2017-05-05 | EKG ---
[place] [address] [facility] [employer] [place] [address] ELECTROCARDIOGRAM REPORT Name: ERIC FRANCO Room #: [facility] Rivera#: [id number] Admission: 05/05/17 Attend Phys: Discharge: Date of : 48 Report #: [id number] THIS REPORT FOR: //name// [facility] ED Test Date: 2017-05-05 Test Time: 15:17:06 Pat Name: ERIC FRANCO Department: Room: Gender: F Creel Cleaner: Olivia AVILA : 1950 Requested By: Сергей Hickman Order Number: [id number] MD: Floyd Warner Measurements Intervals [place] Rate: 103 P: 101 NM: 185 QRS: 25 QRSD: 104 T: 188 QT: 352 QTc: 461 Interpretive Statements Sinus tachycardia LVH with secondary repolarization abnormality Compared to ECG 04/09/2017 16:40:32 Left ventricular hypertrophy now present Early repolarization now present Sinus rhythm no longer present ST (T wave) deviation no longer present Electronically Signed On 05-05-2017 15:55:00 MECHANICAL MAINTENANCE INSTRUCTOR by Floyd Warner [email or web address] <ELECTRONICALLY SIGNED> By: Floyd Warner MD 05/05/17 1555 1517 151 Floyd Warner MD /PALLAVI
--- NOTE | ~2017-05-05 | HC ---
[facility] [place] [address] CONSULTATION Name: ERIC FRANCO Room #: [facility]- ADM IN M.R.#: [id number] Admission: 05/05/17 Attend Phys: Sarbjit Sandoval MD Discharge: Date of : 48 Report #: [id number] THIS REPORT FOR: //name// CC: CONCEPCION Sandoval DATE OF SERVICE: 05/05/2017 ATTENDING PHYSICIAN: Dr. Sarbjit Sandoval. HISTORY OF PRESENT ILLNESS: The patient is a 66-year-old white woman with longstanding history of diabetes mellitus, renal failure requiring renal transplantation, an immunosuppressed host on immunosuppressant agents. She was brought to the Emergency Room by family and rescue squad with status epilepticus, seizure disorder. The patient was evaluated by Dr. Mercedes in the Emergency Room. Discussed the patient's situation with him, recommended dosing the patient with Rocephin 2 g IV stat as well as vancomycin 2 grams IV stat and acyclovir in view of seizure disorder. The antibiotic regimen will be streamlined once spinal fluid result is available to us. The patient is evaluated in the radiology suite where she is undergoing spinal tap by Dr. Franz and the spinal fluid is crystal clear. I did contact pharmacy, requested the patient receives treatment with vancomycin and meropenem for febrile illness and immunosuppressed host with possible aspiration pneumonia. All information on this patient is obtained from the review of her records. PAST MEDICAL HISTORY: Hypertension. Diabetes mellitus. Renal transplant in 2007 on immunosuppressive agents. Morbid obesity requiring laparoscopic banding that was removed in the year 2012. Status post left thoracotomy for empyema. History of thyroidectomy, hysterectomy, paroxysmal atrial fibrillation, CVA with left residual, gastroesophageal reflux as well as COPD. DRUG ALLERGIES: PENICILLIN, SULFA, CODEINE, GABAPENTIN. MEDICATIONS: The patient is on treatment with ceftriaxone 2 grams IV single dose, vancomycin 2000 mg IV single dose, acyclovir 960 mg IV single dose. The patient also received Levaquin, aztreonam, hydrocortisone in the Emergency Room. Currently, the patient is on treatment with tacrolimus 2 mg per feeding tube twice daily, mycophenolate mofetil 500 mg feeding tube b.i.d., vancomycin 500 mg IV daily, meropenem 500 mg IV every 8 hours, chlorhexidine oral care, hydralazine 10 mg IV q. 4 h. p.r.n., regular insulin intravenously titration per glucose p.r.n., acetaminophen, magnesium supplementation per protocol, potassium chloride per protocol. She is on levetiracetam 500 mg IV 2 times daily, heparin 5000 units subq 2 times daily. She is on pressors per protocol. SOCIAL HISTORY: See H and P old records. [address] [address] CONSULTATION Name: ERIC FRANCO Room #: 241-P [facility] IN M.R.#: [id number] Admission: 05/05/17 Attend Phys: Sarbjit Sandoval MD Discharge: Date of : 48 Report #: [id number] FAMILY HISTORY: See H and P old records. REVIEW OF SYSTEMS: Unable to obtain, the patient sedated and intubated on mechanical ventilator. PHYSICAL EXAMINATION: GENERAL: Unresponsive, sedated woman. VITAL SIGNS: Temperature 102.1, pulse 100, BP on admission 263/100. Currently temperature normal, pulse 93, respirations 25-31 a minute, BP 161/49. HEENMT: Head normocephalic, atraumatic. Pupils, status post cataract surgery. Mouth unable to examine because of orotracheal intubation. NECK: Supple. LUNGS: Clear anterior posteriorly. She had rhonchi, crackles base. HEART: S1, S2. No gallop. ABDOMEN: Surgical scars. Right lower abdominal quadrant palpable kidney transplantation. PELVIC AND RECTAL: Deferred. EXTREMITIES: No clubbing, cyanosis. NEUROLOGIC: Unable to evaluate. LABORATORY DATA: The spinal fluid resulted yesterday revealed this to be ____ clear color, 3 wbc's per HPF, 11 rbc's per HPF, glucose 398, CSF protein 86. On admission, sodium 135, potassium 4.4, CO2 24. BUN 71, creatinine 3.8, glucose 966, total bilirubin 0.5, alkaline phosphatase 181, albumin 3.2. C-reactive protein less than 2 mg/L. Protime 10.4, INR 1, APTT 22.9. On admission, CBCs while revealed WBC 11,200, hemoglobin 12 g/dL, platelets 283,000. Repeat CBC today revealed WBC to be 14,200, hemoglobin 10.5 g/dL and platelets 252,000. The white blood cell count differential revealed 82% segmented neutrophils. Sedimentation rate 35 mm per hour. MRSA screen pending. Respiratory viral panel by PCR is pending. Procalcitonin normal. Urinalysis revealed elevation, specific gravity greater than 1.030, pH 5, 3+ protein, 1+ glucose, trace ketones, trace leukocyte esterase. Microscopic exam revealed rare wbcs, 1-9 bacteria per HPF. The arterial blood gases on admission revealed pH 7.28, pCO2 of 56, pO2 377, bicarbonate 26, lactate 2.97 and this set of gases is on FiO2 100%, CMV mode, 5 of PEEP, FiO2 100%. MICROBIOLOGY DATA: Rapid influenza test negative. Blood, sputum and CSF cultures all pending. RADIOLOGY EVALUATION: A CT scan of the brain revealed chronic changes of sinusitis of the maxillary sinuses. No evidence of acute intracranial process. An MRI obtained today of the brain revealed scattered white matter disease, no acute intracranial abnormalities; bilateral maxillary, sphenoid and ethmoid sinusitis noted. Chest x-ray, no acute process. [facility] [address] [place] [address] CONSULTATION Name: ERIC FRANCO Room #: 241-P [facility] IN ..#: [id number] Admission: 05/05/17 Attend Phys: Sarbjit Sandoval MD Discharge: Date of : 48 Report #: [id number] ASSESSMENT: 1. Febrile illness, question etiology. 2. New onset seizure disorder. 3. Possible aspiration pneumonia. 4. Uncontrolled diabetes mellitus with hyperosmolar nonketotic coma. 5. Acute kidney disease on chronic kidney disease in a renal transplant person. 6. Immunosuppressed host. 7. PENICILLIN ALLERGY. 8. Respiratory failure, mechanical ventilator dependent. SUGGESTIONS: Initially recommended treatment with Rocephin 2 g IV once, vancomycin 2000 mg IV once and acyclovir 10 mg/kg. Once the spinal fluid shown to be normal, the diagnosis of meningismus no longer an issue and recommend treating the patient as for possible aspiration pneumonia with combination of vancomycin and meropenem. Obviously as her febrile illness may be related to seizure disorder and this issue appears to be confirmed by normal procalcitonin, normal CRP and sedimentation rate. Dr. Sarbjit Sandoval, thank you for requesting my suggestions in the care of your patient. <ELECTRONICALLY SIGNED> By: Dio Warner MD 05/07/17 0940 1043 2227 Dio Warner MD /nt
--- NOTE | ~2017-05-05 | HC ---
[facility] [place] [address] CONSULTATION Name: ERIC FRANCO Room #: [facility]- ADM IN M.R.#: [id number] Admission: 05/05/17 Attend Phys: Sarbjit Sandoval MD Discharge: Date of : 48 Report #: [id number] THIS REPORT FOR: //name// CC: Melina Sandoval DATE OF SERVICE: 05/05/2017 HISTORY OF PRESENT ILLNESS: This is a 66-year-old female patient who is unable to provide any history because she is intubated and she is on propofol. Family provides history that she never had any seizure before. She had occurrence of seizure. As I understand from Emergency Room physician, this patient had recurrent seizures and there was so severe that they have to intubate her. This patient is intubated at the moment. She has received numerous psychotropic medication. She had emesis. REVIEW OF SYSTEMS: Although the family is here, but the review of system is very poor in this patient from the family. I got the records and it looks like this patient has paroxysmal atrial fibrillation. However, the family indicates that she is not on any anticoagulation. The record here confirmed that she is not on any anticoagulation. She had a history of a kidney transplant about a few years ago and she has been on immunosuppressive therapy. She has diabetes mellitus and her blood sugar is very high today. She has hypertension and her hypertension is out of control today. She is running a temperature and white count is slightly up at 11.2. Her platelet count is normal. Record also indicated that there is some mention of a hemorrhagic CVA in the past, but I do not see any confirmation on any of the imaging study, which is available to me. All of it makes it very difficult to evaluate this patient further. She does have a history of COPD. Apparently, there is CVA with a raft residual weakness but with such poor history, I cannot tell for sure. This was her relevant 14-point review of system that I can obtain. PAST MEDICAL HISTORY: Negative for seizure but is positive for stroke as per records, but I have not been able to confirm that. FAMILY HISTORY: Negative for early onset seizure. SOCIAL HISTORY: According to the family, she does not drink alcohol or smoke. PHYSICAL EXAMINATION: NEUROLOGICAL: Pretty limited. She is sedated and I cannot do any examinations on her. It looks like she is moving the right side, but I did not see her to move the left side. It is difficult to tell about the meningeal sign in this patient's. Pupil looks slightly asymmetrical, but I do not know what her baseline is. VITAL SIGNS: Her last blood pressure is still 263/110, respiration is 15, pulse [facility] [address] [place] [address] CONSULTATION Name: ERIC FRANCO Room #: 241-P ADM IN M.R.#: [id number] Admission: 05/05/17 Attend Phys: Sarbjit Sandoval MD Discharge: Date of : 48 Report #: [id number] is 100 and temperature is 102.1. RADIOLOGICAL DATA: Head CT scan was not showing any acute changes. IMPRESSION: 1. New-onset seizure by history and in fact new-onset status epilepticus by history. 2. Prior history of stroke, which I cannot confirm. 3. Fever of unknown origin and she needs workup for that and infectious disease has been consulted as I understand from them. RECOMMENDATIONS: 1. As far as seizure is concern presently, she is well covered with anticonvulsants. She is on propofol and that is the ultimate medication for seizures. I did not see any active seizure when I was here. I am going to get a stat EEG done. I called the electrical assembly technician and he is on his way and we will see if there is any seizure activity noticed. 2. The seizures are most likely secondary to metabolic disturbances. However, fever is concern in this patient. ID is consulted and I will defer further evaluation and management of her seizure to ID including spinal tap. As I understand from the Emergency Room physician, ID wants this patient to have a spinal tap and they are arranging it and I will defer that to ID. 3. This patient needs MRI sometime. She is not in a condition to go for MRI. Once her seizures are better controlled, then I will like her to have an MRI because the patient with such high blood sugar and such high blood pressure can have strokes. I had multiple discussions with the family and I had multiple discussions with Emergency Room physician and I will check on this patient after the patient's EEG is done to see what we need to go to do about the anticonvulsants in this patient. Thank you very much for this referral and if you have any question, please feel free to contact me. <ELECTRONICALLY SIGNED> By: Smith Major MD 05/09/172000 1649 10 Smith Maojr MD /nt
--- NOTE | ~2017-05-05 | EEG ---
[facility] [place] [address] ELECTROENCEPHALOGRAM Name: ERIC FRANCO Room #: [facility] IN M.R.#: [id number] Admission: 05/05/17 Attend Phys: Sarbjit Sandoval MD Discharge: Date of : 48 Report #: [id number] THIS REPORT FOR: //name// CC: Melina Sandoval DATE OF SERVICE: 05/06/2017 This patient is being evaluated for the possibility of seizure. This patient's EEG was obtained when the patient was sedated. EEG was done by placing the electrodes by standard 10-20 system of electrode placement. Background activity appeared to be about 7 Hz and 20 microvolts. Photic stimulation is unremarkable. No active epileptiform activity was noticed. IMPRESSION: This patient's EEG is masked by a lot of artifact. No active epileptiform activity was noticed, indicating that probably the neurological symptoms she had was because of systemic problems. Thank you very much for this referral. <ELECTRONICALLY SIGNED> By: Smith Major MD 05/09/172001 192 36 Smith Major MD /nt
[~2017-05-05 13:39] MED LIST changes: +CIPROFLOXACIN500 M1 PO
[2017-05-05 14:01] LABS: HEMATOCRIT 39.9 % (37.0-47.0); MCH 25.2 pg (26.0-34.0); MCV 84.1 fL (80.0-100.0); RBC 4.74 mil/uL (4.20-5.00); RDW 17.4 % (10.5-14.5); WBC 11.2 thou/uL (4.0-11.0)
[2017-05-05 14:09] LABS: CALCIUM 9.5 mg/dL (8.5-10.1); CREATININE 3.8 mg/dL (0.6-1.0); POTASSIUM 4.4 mmol/L (3.5-5.1)
[2017-05-05 14:11] LABS: ALBUMIN 3.2 g/dL (3.4-5.0); TOTAL BILIRUBIN 0.5 mg/dL (<0.1-1.0); TOTAL PROTEIN 7.2 g/dL (6.4-8.2)
[2017-05-05 14:35] LABS: BE(vivo) -1.1 mmol/L (-2 to +3); HCO3 26.5 mmol/L (22.0-26.0); PCO2 56.8 mmHg (35.0-45.0); sO2 99.7 % (92.0-98.0)
[2017-05-05 14:36] LABS: pH 7.287 (7.360-7.450)
[2017-05-05 16:43] LABS: APTT 22.9 Seconds (24.5-32.8); PROTIME 10.4 Seconds (9.3-11.4)
[2017-05-05 17:02] LABS: BE(vivo) -1.7 mmol/L (-2 to +3); HCO3 23.4 mmol/L (22.0-26.0); PCO2 41.1 mmHg (35.0-45.0); PO2 102.9 mmHg (80.0-100.0); pH 7.374 (7.360-7.450); sO2 97.6 % (92.0-98.0)
[2017-05-05 18:49] LABS: CSF GLUCOSE 398 mg/dL (40-70)
[2017-05-05 18:50] LABS: CSF CLARITY CLEAR; CSF COLOR COLORLESS; VOLUME 11 ml
[2017-05-05 18:54] LABS: CSF RBC 11 /mm3; CSF WBC 3 /mm3 (0-10)
[2017-05-05 20:47] LABS: CALCIUM 8.6 mg/dL (8.5-10.1); POTASSIUM 3.3 mmol/L (3.5-5.1)
[2017-05-06] VITALS (97 sets, daily range): BP systolic 81–235; BP diastolic 35–212
[2017-05-06 00:13] LABS: URINE BILIRUBIN NEGATIVE (Negative); URINE BLOOD 1+ (Negative); URINE CLARITY CLEAR; URINE COLOR YELLOW; URINE GLUCOSE-RANDOM* 1+ (Negative); URINE KETONES TRACE (Negative); URINE NITRITE-REFLEX NEGATIVE (Negative); URINE PROTEIN (DIPSTICK) 3+ (Negative); URINE SPECIFIC GRAVITY >= 1.030 (1.005-1.035); URINE UROBILINOGEN 0.2 E.U./dl (0.2-1.0)
[2017-05-06 00:31] LABS: URINE LEUKOCYTES-REFLEX TRACE (Negative)
[2017-05-06 00:52] LABS: BACTERIA-REFLEX 1-9 Few /HPF (None Seen); CRYSTALS None Seen /LPF (None Seen); HYALINE CASTS 0-3 Few /LPF (None Seen); MUCUS None Seen strn/LPF (None Seen); SQUAMOUS None Seen /LPF (0-3); URINE RBC 0-2 Rare /HPF (0-2); URINE WBC-REFLEX 0-5 Rare /HPF (0-5)
[2017-05-06 00:59] LABS: CALCIUM 8.9 mg/dL (8.5-10.1); POTASSIUM 3.4 mmol/L (3.5-5.1)
[2017-05-06 06:07] LABS: CREATININE 4.2 mg/dL (0.6-1.0); POTASSIUM 3.7 mmol/L (3.5-5.1)
[2017-05-06 06:27] LABS: ABSOLUTE NEUTROPHILS 11.7 thou/uL (1.4-8.2); BASOPHILS 0.4 % (0.0-2.0); HEMATOCRIT 34.4 % (37.0-47.0); HEMOGLOBIN 10.5 gm/dL (12.0-15.0); LYMPHOCYTES 5.7 % (24.0-44.0); MCH 24.7 pg (26.0-34.0); MCHC 30.5 g/dL (28.0-37.0); MONOCYTES 11.5 % (1.0-8.0); PLATELET COUNT 252 thou/uL (150-400); POLYS 82.4 % (36.0-66.0); RBC 4.25 mil/uL (4.20-5.00); RDW 16.4 % (10.5-14.5); WBC 14.2 thou/uL (4.0-11.0)
[2017-05-07] VITALS (49 sets, daily range): BP systolic 77–169; BP diastolic 50–70
[2017-05-07 05:11] LABS: ALBUMIN 2.3 g/dL (3.4-5.0); CALCIUM 9.1 mg/dL (8.5-10.1); PHOSPHORUS 4.2 mg/dL (2.5-4.9); POTASSIUM 3.6 mmol/L (3.5-5.1)
[2017-05-07 05:17] LABS: CREATININE 5.3 mg/dL (0.6-1.0)
[2017-05-07 11:44] LABS: URINE BILIRUBIN NEGATIVE (Negative); URINE BLOOD NEGATIVE (Negative); URINE COLOR YELLOW; URINE GLUCOSE-RANDOM* NEGATIVE (Negative); URINE KETONES TRACE (Negative); URINE LEUKOCYTES 1+ (Negative); URINE NITRITE NEGATIVE (Negative); URINE PROTEIN (DIPSTICK) 2+ (Negative); URINE SPECIFIC GRAVITY >= 1.030 (1.005-1.035); URINE UROBILINOGEN 0.2 E.U./dl (0.2-1.0)
[2017-05-07 11:48] LABS: URINE CLARITY CLOUDY
[2017-05-07 11:58] LABS: URINE CREATININE-RANDOM* 343.6 mg/dL; URINE PROTEIN-RANDOM* 239.1 mg/dL (<11.9)
[2017-05-07 12:15] LABS: AMORPHOUS URATES Moderate /LPF (None Seen); CALCIUM OXALATE 0-3 Few /LPF (None Seen); CASTS None Seen /LPF (None Seen); SQUAMOUS None Seen /LPF (0-3); URINE RBC None Seen /HPF (0-2); URINE WBC >25 Many /HPF (0-5); WBC CLUMPS Few (None Seen)
[2017-05-08] VITALS (47 sets, daily range): BP systolic 89–156; BP diastolic 52–78
[2017-05-08 05:16] LABS: BE(vivo) -5.4 mmol/L (-2 to +3); HCO3 18.6 mmol/L (22.0-26.0); PCO2 31.6 mmHg (35.0-45.0); PO2 166.3 mmHg (80.0-100.0); pH 7.388 (7.360-7.450); sO2 99.1 % (92.0-98.0)
[2017-05-08 06:28] LABS: ALBUMIN 2.1 g/dL (3.4-5.0); CALCIUM 9.1 mg/dL (8.5-10.1); CREATININE 5.5 mg/dL (0.6-1.0); MAGNESIUM 2.1 mg/dL (1.8-2.4); PHOSPHORUS 5.1 mg/dL (2.5-4.9); POTASSIUM 3.5 mmol/L (3.5-5.1)
[2017-05-08 12:59] LABS: HEMATOCRIT 32.6 % (37.0-47.0); HEMOGLOBIN 10.2 gm/dL (12.0-15.0); MCH 25.1 pg (26.0-34.0); MCHC 31.2 g/dL (28.0-37.0); MCV 80.4 fL (80.0-100.0); RBC 4.06 mil/uL (4.20-5.00); RDW 17.2 % (10.5-14.5); WBC 9.1 thou/uL (4.0-11.0)
[2017-05-09] VITALS (58 sets, daily range): BP systolic 80–182; BP diastolic 49–147
[2017-05-09 05:21] LABS: HEMATOCRIT 30.6 % (37.0-47.0); HEMOGLOBIN 9.4 gm/dL (12.0-15.0); MCH 25.4 pg (26.0-34.0); MCHC 30.8 g/dL (28.0-37.0); MCV 82.4 fL (80.0-100.0); RBC 3.71 mil/uL (4.20-5.00); RDW 16.9 % (10.5-14.5); WBC 8.6 thou/uL (4.0-11.0)
[2017-05-09 05:33] LABS: ALBUMIN 1.8 g/dL (3.4-5.0); CALCIUM 8.8 mg/dL (8.5-10.1); MAGNESIUM 2.4 mg/dL (1.8-2.4); PHOSPHORUS 5.7 mg/dL (2.5-4.9); POTASSIUM 3.9 mmol/L (3.5-5.1)
[2017-05-09 05:39] LABS: BE(vivo) -9.6 mmol/L (-2 to +3); HCO3 15.3 mmol/L (22.0-26.0); PCO2 30.2 mmHg (35.0-45.0); PO2 147.9 mmHg (80.0-100.0); sO2 98.8 % (92.0-98.0)
[2017-05-09 05:41] LABS: pH 7.322 (7.360-7.450)
[2017-05-09 22:13] LABS: HEPATITIS B SURFACE AG Negative (Negative)
[2017-05-10] VITALS (63 sets, daily range): BP systolic 101–173; BP diastolic 39–73
[2017-05-10 05:14] LABS: BE(vivo) -1.6 mmol/L (-2 to +3); HCO3 23.1 mmol/L (22.0-26.0); PCO2 38.8 mmHg (35.0-45.0); PO2 111.3 mmHg (80.0-100.0); pH 7.392 (7.360-7.450); sO2 98.1 % (92.0-98.0)
[2017-05-10 06:05] LABS: HEMATOCRIT 29.7 % (37.0-47.0); HEMOGLOBIN 9.4 gm/dL (12.0-15.0); MCH 25.4 pg (26.0-34.0); MCHC 31.6 g/dL (28.0-37.0); MCV 80.4 fL (80.0-100.0); RBC 3.69 mil/uL (4.20-5.00); RDW 16.9 % (10.5-14.5)
[2017-05-10 06:28] LABS: ALBUMIN 1.7 g/dL (3.4-5.0); CALCIUM 8.8 mg/dL (8.5-10.1); MAGNESIUM 2.3 mg/dL (1.8-2.4); PHOSPHORUS 4.5 mg/dL (2.5-4.9); POTASSIUM 3.5 mmol/L (3.5-5.1); TOTAL BILIRUBIN 0.3 mg/dL (<0.1-1.0); TOTAL PROTEIN 5.5 g/dL (6.4-8.2)
[2017-05-10 06:42] LABS: CREATININE 4.2 mg/dL (0.6-1.0)
[2017-05-10 12:23] LABS: BE(vivo) 0.4 mmol/L (-2 to +3); PCO2 34.9 mmHg (35.0-45.0); PO2 135.9 mmHg (80.0-100.0); pH 7.455 (7.360-7.450); sO2 98.9 % (92.0-98.0)
[2017-05-10 18:06] LABS: ADENOVIRUS Negative (Negative); INFLUENZA A Positive (Negative); INFLUENZA B Negative (Negative); METAPNEUMOVIRUS Negative (Negative); PARAINFLUENZA 1 Negative (Negative); PARAINFLUENZA 2 Negative (Negative); PARAINFLUENZA 3 Negative (Negative); RHINOVIRUS Negative (Negative); RSV A Negative (Negative); RSV B Negative (Negative)
[2017-05-11] VITALS (28 sets, daily range): BP systolic 99–183; BP diastolic 44–128
[2017-05-11 04:59] LABS: HEMOGLOBIN 9.5 gm/dL (12.0-15.0); MCH 25.3 pg (26.0-34.0); MCHC 31.7 g/dL (28.0-37.0); MCV 79.7 fL (80.0-100.0); PLATELET COUNT 261 thou/uL (150-400); RBC 3.76 mil/uL (4.20-5.00); RDW 16.3 % (10.5-14.5); WBC 7.3 thou/uL (4.0-11.0)
[2017-05-11 05:22] LABS: ABSOLUTE NEUTROPHILS 6.1 thou/uL (1.4-8.2); ANISOCYTOSIS 1+; LARGE PLATELETS RARE; MICROCYTES 1+
[2017-05-11 05:23] LABS: ALBUMIN 1.6 g/dL (3.4-5.0); CALCIUM 8.5 mg/dL (8.5-10.1); POTASSIUM 3.4 mmol/L (3.5-5.1); TOTAL BILIRUBIN 0.3 mg/dL (<0.1-1.0); TOTAL PROTEIN 5.4 g/dL (6.4-8.2)
[2017-05-11 05:26] LABS: CREATININE 3.2 mg/dL (0.6-1.0)
[2017-05-12] VITALS (33 sets, daily range): BP systolic 108–193; BP diastolic 41–98
[2017-05-12 05:10] LABS: HEMATOCRIT 28.7 % (37.0-47.0); HEMOGLOBIN 9.1 gm/dL (12.0-15.0); MCH 25.5 pg (26.0-34.0); MCHC 31.7 g/dL (28.0-37.0); MCV 80.5 fL (80.0-100.0); RBC 3.56 mil/uL (4.20-5.00); RDW 16.5 % (10.5-14.5); WBC 6.5 thou/uL (4.0-11.0)
[2017-05-12 05:22] LABS: ALBUMIN 1.7 g/dL (3.4-5.0); CALCIUM 8.8 mg/dL (8.5-10.1); CREATININE 3.1 mg/dL (0.6-1.0); PHOSPHORUS 4.3 mg/dL (2.5-4.9); POTASSIUM 3.5 mmol/L (3.5-5.1)
[2017-05-13 03:57] VITALS: BP 135/54
[2017-05-13 07:45] VITALS: BP 167/49
[2017-05-13 08:10] LABS: ALBUMIN 1.8 g/dL (3.4-5.0); CREATININE 3.6 mg/dL (0.6-1.0); PHOSPHORUS 4.1 mg/dL (2.5-4.9); POTASSIUM 3.6 mmol/L (3.5-5.1)
[2017-05-13 12:05] VITALS: BP 144/54
[2017-05-13 15:40] VITALS: BP 148/43
[2017-05-13 19:40] VITALS: BP 151/69
[2017-05-14 03:08] VITALS: BP 156/65
[2017-05-14 06:35] LABS: ALBUMIN 1.8 g/dL (3.4-5.0); CREATININE 3.6 mg/dL (0.6-1.0); PHOSPHORUS 4.6 mg/dL (2.5-4.9); POTASSIUM 3.3 mmol/L (3.5-5.1)
[2017-05-14 07:49] VITALS: BP 150/58
[2017-05-14] MEDS ORDERED: HEPARIN SO5000 UNIT/ SUBQ (11:20)
[2017-05-14] MEDS ORDERED: CARVEDILOL12.5 MG PO (11:21)
[2017-05-14] MEDS ORDERED: AMLODIPINE BESY10 MG PO (11:21)
[2017-05-14] MEDS ORDERED: PANTOPRAZOLE SO40 M1 PO (11:22)
[2017-05-14] MEDS ORDERED: NOVOLOG100 UNIT/1 SUBQ (11:22)
[2017-05-14] MEDS ORDERED: LANTUS SUBQ (11:22)
[2017-05-14 11:28] VITALS: BP 154/54
[2017-05-14] MEDS ORDERED: KEPPRA 500 MG500 M1 PO (11:31)
[2018-01-05] MEDS ORDERED: VENTOLIN HFA 1818 GM INH (10:20)
[2018-01-05] MEDS ORDERED: PROAIR HFA8.5 GM (10:20)
[2018-01-05] MEDS ORDERED: FLONASE 0.05%50 MCG NASAL (10:21)
[2018-01-05] MEDS ORDERED: ALLEGRA ALLERG180 MG PO (10:21)
[2018-01-05] MEDS ORDERED: LANTUS SUBQ (10:22)
[2018-01-05] MEDS ORDERED: LISINOPRIL20 MG (10:22)
[2018-01-05] MEDS ORDERED: HUMALOG100 UNIT/1 SUBQ (10:22)
[2018-01-05] MEDS ORDERED: METOLAZONE 2.52.5 MG PO (10:23)
[2018-01-05] MEDS ORDERED: LOPRESSOR50 PO (10:23)
[2018-01-05] MEDS ORDERED: SODIUM BICARBO650 M3 PO (10:24)
[2018-01-05] MEDS ORDERED: CELLCEPT500 MG PO (10:24)
[2018-01-05] MEDS ORDERED: DEMADEX20 MG PO (10:25)
[2018-01-05] MEDS ORDERED: TERAZOSIN HCL5 MG PO (10:25)
== END 2017-05-14 15:10 | DRG 870 ==
LOC: ER 13:39 → ICU 16:22 → ER 18:42 → ICU 05-12 18:34 → 2N 05-12 18:34
PROVIDERS: Emergency Medicine; Hospitalist; Internal Medicine; Internal Medicine Infectious Disease; Internal Medicine Nephrology; Internal Medicine Pulmonary Disease
PROC: 0BH17EZ Insertion of Endotracheal Airway into Trachea, Via Natural or Artificial Opening (ICD-10-PCS; principal; 2017-05-05)
PROC: 02HV33Z Insertion of Infusion Device into Superior Vena Cava, Percutaneous Approach (ICD-10-PCS; principal; 2017-05-05)
PROC: 5A1955Z Respiratory Ventilation, Greater than 96 Consecutive Hours (ICD-10-PCS; principal; 2017-05-05)
PROC: 009U3ZZ Drainage of Spinal Canal, Percutaneous Approach (ICD-10-PCS; 2017-05-06)
PROC: B01B1ZZ Fluoroscopy of Spinal Cord using Low Osmolar Contrast (ICD-10-PCS; 2017-05-06)
PROC: 5A1D70Z Performance of Urinary Filtration, Intermittent, Less than 6 Hours Per Day (ICD-10-PCS; 2017-05-09)
DX: A41.9 Sepsis, unspecified organism (principal); J69.0 Pneumonitis due to inhalation of food and vomit; E11.10 Type 2 diabetes mellitus with ketoacidosis without coma; N18.6 End stage renal disease; J96.02 Acute respiratory failure with hypercapnia; J96.01 Acute respiratory failure with hypoxia; G93.40 Encephalopathy, unspecified; N17.9 Acute kidney failure, unspecified; E87.0 Hyperosmolality and hypernatremia; Z94.0 Kidney transplant status; I69.954 Hemiplegia and hemiparesis following unspecified cerebrovascular disease affecting left non-dominant side; I12.0 Hypertensive chronic kidney disease with stage 5 chronic kidney disease or end stage renal disease; E66.01 Morbid (severe) obesity due to excess calories; E89.0 Postprocedural hypothyroidism; J44.9 Chronic obstructive pulmonary disease, unspecified; K21.9 Gastro-esophageal reflux disease without esophagitis; I48.0 Paroxysmal atrial fibrillation; E11.22 Type 2 diabetes mellitus with diabetic chronic kidney disease; G40.901 Epilepsy, unspecified, not intractable, with status epilepticus; E11.65 Type 2 diabetes mellitus with hyperglycemia; Z88.2 Allergy status to sulfonamides; J32.9 Chronic sinusitis, unspecified; I16.0 Hypertensive urgency; E11.649 Type 2 diabetes mellitus with hypoglycemia without coma; E88.9 Metabolic disorder, unspecified; R65.20 Severe sepsis without septic shock; D64.9 Anemia, unspecified; I25.10 Atherosclerotic heart disease of native coronary artery without angina pectoris; Z68.39 Body mass index [BMI] 39.0-39.9, adult; Z88.6 Allergy status to analgesic agent; Z88.0 Allergy status to penicillin; Z79.899 Other long term (current) drug therapy
CPT/HCPCS: 10078; 10204; 10797; 27000; 32100

== ENCOUNTER → 2018-08-27 | Outpatient (CLI) | payer OTHER ==
[~2018-08-27] VITALS: Ht 172.7 cm; Wt 97.5 kg
[~2018-08-27] MED LIST changes: +ALLEGRA ALLERG180 MG PO; +AMLODIPINE BESY10 MG PO; +BIOTIN5 MG PO; +CARVEDILOL12.5 MG PO; +COL-RITE100 MG PO; +CYMBALTA30 MG PO; +HEPARIN SO5000 UNIT/ SUBQ; +HUMALOG100 UNIT/1 SUBQ; +KEPPRA 500 MG500 M1 PO; +LEVOXYL125 MCG PO; +LOPRESSOR50 PO; +METOLAZONE 2.52.5 MG PO; +PANTOPRAZOLE SO40 M1 PO; +PLAVIX 75 MG TA75 M1 PO; +SLOW FE142 MG PO; +SODIUM BICARBO650 M3 PO; +SYNTHROID100 MC1 PO; +TERAZOSIN HCL5 MG PO; +VENTOLIN HFA 1818 GM INH
--- NOTE | 2018-08-28 16:06 | PATH ---
[facility] [place] [address] PATHOLOGY RPT PROCEDURE Name: SAGRARIO TERAN Room #: REG [facility].#: [id number] ������������������ Admission: 08/27/18 ������������������ Date of : 48 Discharge: Report #: [id number] Path Case #: [id number] [facility] Accession Number: [id number] . 01 Material submitted: . PART A: small bowel - SMALL BOWEL BX HX ANEMIA R/O CELIAC DISEASE PART B: stomach - BX GASTRITIS R/O H PYLORI PART C: colon - RANDOM BX COLON R/O COLITIS . 01 Clinical history: . Pre-OP DX: Anemia, dysphagia, gastroparesis, diarrhea Post-OP DX: Gastritis, dysphagia, diverticulosis . 02 Diagnosis: A. Small bowel mucosa, small bowel, endoscopic biopsy: - Mild nonspecific duodenitis with focal fundic-type metaplasia compatible with peptic duodenitis. - Negative for villous blunting or increase in intraepithelial lymphocytes. . B. Gastric mucosa, gastritis, rule out H. pylori, endoscopic biopsy: - Mild reactive gastropathy. - Negative for intestinal metaplasia or atrophy. - Negative for Helicobacter pylori (properly controlled immunohistochemical stain performed). . C. Large intestine mucosa, random colon, rule out colitis, endoscopic biopsy: - Mild focal nonspecific active colitis. - Negative for dysplasia or malignancy. . (IUV:real time analyst; 08/28/2018) MBR/08/28/2018 . 02 Comment: Sections of the colonic mucosa designated "random colon" show focal cryptitis, and a moderately cellular lamina propria composed predominantly of lymphocytes and plasma cells and occasional eosinophils. Surface ulceration is not identified. There are no crypt abscesses, granulomas or viral inclusions. The process affects all the fragments with a similar intensity. Given the description, the differential diagnosis includes acute self-limited episode of colitis, resolving episode of colitis, bowel preparation, as well as medication-induced colitis. Please correlate with clinical as well as endoscopic findings. (IUV:real time analyst; 08/28/2018) . 02 Electronically signed: . [address] [address] PATHOLOGY RPT PROCEDURE Name: SAGRARIO TERAN Room #: REG [facility] Rivera#: [id number] ������������������ Admission: 08/27/18 ������������������ Date of : 48 Discharge: Report #: [id number] Path Case #: [id number] Tory Zacarias MD, Pathologist NPI- [id number] . 01 Gross description: . A. Received in formalin labeled "[place], [place], small bowel BX, rule out celiac, Hx anemia," are 6 segments of [place] soft tissue measuring 1.5 x 0.9 x 0.2 cm in aggregate dimensions and ranging from 0.3 to 0.5 cm in maximum dimension. The specimen is submitted entirely in cassette A1. . B. Received in formalin labeled "[place], Sagr[place], BX gastritis, rule out H. pylori," are 5 segments of [place] soft tissue measuring 1.4 x 1.2 x 0.2 cm in aggregate dimensions and ranging from 0.2 to 0.7 cm in maximum dimension. The specimen is submitted entirely in cassette B1. . C. Received in formalin labeled "[place], [place], random BX colon, rule out colitis," are multiple segments of [place] soft tissue measuring 1.5 x 0.6 x 0.2 cm in aggregate dimensions. The specimen is filtered and entirely submitted in cassette C1. (TSD; 08/27/2018) TOB/TOB . 02 Pathologist provided ICD-10: K29.80, K31.9, K52.9 . 02 CPT . 516156, 284689, 344141, Q42940 Specimen Comment: A courtesy copy of this report has been sent to Specimen Comment: [phone], . Specimen Comment: Report sent to / DR DEL CASTILLO Performed at: [address] [facility], [place], [place] [id number] MD Kristopher Olvera MD Phone: [phone] Performed at: [address] [facility] [address] [id number] MD Tory Zacarias MD Phone: [phone]
--- NOTE | 2018-08-29 10:54 | P ---
[facility] [place] [address] PROCEDURE REPORT Name: ERIC TERAN Room #: REG [facility]#: [id number] Admission: 08/27/18 ������������������ Attend Phys: Jgajit Garland MD Discharge: ������������������ Date of : 49 Report #: [id number] THIS REPORT FOR: //name// CC: Melina Garland BRIEF HISTORY: The patient is a 68-year-old woman with a history of chronic kidney disease, status post kidney transplant as well as diabetes and atrial fibrillation with gastroparesis. She reports she has had a weight loss recently in the range of about 20 pounds. She also reports she has early satiety and fullness and reports she just cannot eat much of anything at all. In addition, she has intermittent solid food dysphagia. PREOPERATIVE DIAGNOSES: 1. Early satiety. 2. Anorexia. 3. Weight loss. 4. Anemia. POSTOPERATIVE DIAGNOSES: 1. Mild diffuse gastritis with few scattered erosions. 2. Dysphagia for solids. MEDICATIONS: Deep sedation with propofol per anesthesia. SPECIMENS: 1. Small bowel biopsies to rule out celiac disease. 2. Biopsies of gastritis. ESTIMATED BLOOD LOSS: 3 mL. PROCEDURE: EGD with biopsy and Valentin dilation. FINDINGS: Prior to propofol sedation, procedure of upper endoscopy discussed with the patient as well as potential risks and its complications. She indicates she understands and desires to proceed. DESCRIPTION OF PROCEDURE: With the patient in left lateral decubitus position, the Olympus video endoscope was inserted in the cervical esophagus under direct vision without difficulty. Examination of this organ through its length revealed normal esophageal mucosa down to the squamocolumnar junction. The squamocolumnar junction was inspected and noted to be unremarkable. No ulcers or erosions were seen. No strictures or masses were seen. A significant hiatus hernia was not seen. Scope was advanced in the stomach, was examined on end view as well as retroflexed views. There were diffuse gastritis and a few scattered erosions were seen. No ulcers were seen. No evidence of bleeding [facility] [address] [place] [address] PROCEDURE REPORT Name: ERIC TERAN Room #: REG [facility].#: [id number] Admission: 08/27/18 ������������������ Attend Phys: Jagjit Garland MD Discharge: ������������������ Date of : 48 Report #: [id number] lesions was identified. Upon retroflexion, no mass lesions were seen. The pylorus, duodenal bulb and postbulbar sweep were inspected and noted to be unremarkable. In view of her anemia, small bowel biopsies were obtained. We also obtained biopsies of gastritis. In addition, there were no retained solids or liquids in the stomach to support a diagnosis of gastroparesis. There was no evidence of peptic ulcer disease. At that point, the scope was slowly withdrawn and careful circumferential views confirmed the above findings. The patient tolerated the procedure well. Following the procedure, she was dilated with passage of a 50-Mosotho Valentin dilator. There was no resistance. CONDITION OF THE PATIENT UPON DISCHARGE: Following the procedure, the patient drowsy. She was then prepared for colonoscopy. INSTRUCTIONS TO THE PATIENT AND FAMILY AT THE TIME OF DISCHARGE: She currently is taking ranitidine 150 mg daily. We will have her increase to 150 mg twice daily. She is to continue dietary precautions with regards to her gastroparesis, although no retained solids and liquids in the stomach at this time. There is no evidence of sigmoid ulcer disease. We will proceed with colonoscopy at this time. Also, she is to return on an as needed basis for dilation of her esophagus if she has recurrent symptoms of dysphagia. ��������������������������������������������� <ELECTRONICALLY SIGNED> ���������������������������������������� By: Jagjit Garland MD ��������������������������������������������� 08/29/18 1054 1122 2107 Jagjit Garland MD /nt
--- NOTE | 2018-08-29 10:54 | P ---
[facility] [place] [address] PROCEDURE REPORT Name: ERIC TERAN Room #: REG [facility]#: [id number] Admission: 08/27/18 ������������������ Attend Phys: Jagjit Garland MD Discharge: ������������������ Date of : 48 Report #: [id number] THIS REPORT FOR: //name// CC: Melina Garland DATE OF SERVICE: 08/27/2018 OUTPATIENT COLONOSCOPY REPORT: BRIEF HISTORY: The patient is a 68-year-old woman with recent problems with change in bowel habits with diarrhea-like stools. She also has a history of colon polyps. PREOPERATIVE DIAGNOSIS: Change in bowel habits and history of colon polyps. POSTOPERATIVE DIAGNOSIS: Vpqlldia-on-rhkqep sigmoid diverticulosis coli. MEDICATIONS: Deep sedation with propofol per anesthesia. SPECIMENS: Random biopsy colon, rule out colitis. ESTIMATED BLOOD LOSS: 3 mL. PROCEDURE: Colonoscopy to cecum and terminal ileum with biopsy. FINDINGS: Prior to propofol sedation, procedure of colonoscopy discussed with the patient as well as potential risks and its complications. She indicates she understands and desires to proceed. DESCRIPTION OF PROCEDURE: With the patient in left lateral decubitus position, digital examination was completed, which revealed no abnormalities. Subsequently, the Olympus video colonoscope was introduced in the rectum, advanced under direct vision to the cecum. Done with minimal difficulty. Cecum was reached, identified by the ileocecal valve and the appendiceal orifice. I was able to visualize the distal segment of terminal ileum, which was inspected and noted to be unremarkable. At that point, the scope was slowly withdrawn and careful circumferential views obtained. Upon slow withdrawal of the scope, the prep was good. The mucosa was within normal limits, normal vascular pattern and normal light reflex. As we withdrew the scope, no neoplastic lesions were seen. No polyps were identified. There was no obvious evidence of colitis. In view of her change in bowel habits with loose stools, multiple biopsies were obtained to evaluate for microscopic colitis. The scope was withdrawn to the sigmoid colon. She was noted to have moderately severe diverticular disease without endoscopic evidence of diverticulitis. The scope was withdrawn in the rectum, [facility] [address] [place] [address] PROCEDURE REPORT Name: ERIC TERAN Room #: REG [facility]#: [id number] Admission: 08/27/18 ������������������ Attend Phys: Jagjit Garland MD Discharge: ������������������ Date of : 48 Report #: [id number] no abnormalities were seen. The scope was withdrawn. The patient tolerated the procedure well. CONDITION OF THE PATIENT UPON DISCHARGE: Following procedure, the patient drowsy, arousable, conversant and will be discharged home when fully ambulatory. INSTRUCTIONS TO THE PATIENT AND FAMILY AT THE TIME OF DISCHARGE: The patient with findings as noted above. There is no evidence of inflammatory disease or neoplastic disease. We will follow up on the biopsies with regards to change in bowel habits or possibly microscopic colitis. If needed, she may take Imodium for diarrhea. We will make further recommendations after review of her path report. Withdrawal time from the cecum was 13 minutes. Her last colonoscopy was nearly 3 years ago. ��������������������������������������������� <ELECTRONICALLY SIGNED> ���������������������������������������� By: Jagjit Garland MD ��������������������������������������������� 08/29/18 1054 1154 2329 Jagjit Garland MD /nt
== END | disposition home or self-care (01) ==
LOC: GI 08:50
DX: K52.9 Noninfective gastroenteritis and colitis, unspecified (principal); K57.30 Diverticulosis of large intestine without perforation or abscess without bleeding; K29.80 Duodenitis without bleeding; K31.9 Disease of stomach and duodenum, unspecified; D64.9 Anemia, unspecified; R13.19 Other dysphagia; I13.0 Hypertensive heart and chronic kidney disease with heart failure and stage 1 through stage 4 chronic kidney disease, or unspecified chronic kidney disease; I50.30 Unspecified diastolic (congestive) heart failure; E11.22 Type 2 diabetes mellitus with diabetic chronic kidney disease; N18.9 Chronic kidney disease, unspecified; J45.909 Unspecified asthma, uncomplicated; G47.33 Obstructive sleep apnea (adult) (pediatric); E78.00 Pure hypercholesterolemia, unspecified; I48.0 Paroxysmal atrial fibrillation; K21.9 Gastro-esophageal reflux disease without esophagitis; M10.9 Gout, unspecified; Z86.010 Personal history of colon polyps; Z79.01 Long term (current) use of anticoagulants; Z79.899 Other long term (current) drug therapy; Z79.4 Long term (current) use of insulin; Z90.710 Acquired absence of both cervix and uterus; Z86.73 Personal history of transient ischemic attack (TIA), and cerebral infarction without residual deficits; Z98.890 Other specified postprocedural states; Z88.0 Allergy status to penicillin; Z88.2 Allergy status to sulfonamides; Z88.6 Allergy status to analgesic agent; Z88.8 Allergy status to other drugs, medicaments and biological substances; Z79.82 Long term (current) use of aspirin
CPT/HCPCS: 62110; 62900

== ENCOUNTER → 2020-05-25 | Outpatient (CLI) | payer OTHER | LOC: RAD 12:19 | DX: J98.11 Atelectasis (principal); M47.814 Spondylosis without myelopathy or radiculopathy, thoracic region; J98.4 Other disorders of lung ==

== ENCOUNTER → 2021-01-15 | Outpatient (CLI) | payer OTHER ==
--- NOTE | 2021-01-17 12:07 | PATH ---
[facility] [place] [address] PATHOLOGY RPT PROCEDURE Name: ERIC TERAN Room #: REG [facility]#: [id number] Admission: 01/15/21 Date of : 48 Discharge: Report #: [id number] Path Case #: [id number] Note [facility] Accession Number: [id number] TESTS RESULT FLAG UNITS REF RANGE LAB Clinician Provided Cytology Information No. of containers..01 Other (Miscellaneous) Source: RIGHT THYROID NODULE DIAGNOSIS: RIGHT THYROID NODULE, FINE NEEDLE ASPIRATION NEGATIVE FOR MALIGNANT EPITHELIAL CELLS. BETHESDA CATEGORY II. SPECIMEN CONSISTS OF GROUPS OF MACROFOLLICULAR CELLS, RARE MICROFOLLICLES, MACROPHAGES, COLLOID AND BLOOD. THE PATTERN IS COMPATIBLE WITH ADENOMATOID NODULE. WATERY AND DENSE COLLOID IS PRESENT. RED BLOOD CELLS ARE PRESENT. NEGATIVE FOR NUCLEAR FEATURES OF PAPILLARY THYROID CARCINOMA. Comment: Please note sample may not be entirely applications sales representative; correlate clinically and follow-up as indicated. Pathologist ICD10: 02 E04.1 Signed out by: Tory Zacarias MD, Pathologist NPI- [id number] Performed by: Chel Anguiano, Business Objects Consultant ([facility]) Gross description: 01 20ML, CLEAR LIGHT, PINK /LCS 01/16/2021 1916 Local FLAG LEGEND: L-Low Normal,H-High Normal,LL-Alert Low,HH-Alert High <-Panic Low,>-Panic High,A-Abnormal,AA-Critical Abnormal Performed at: 01 [facility] [address] [place] [address] Jaden Daniel MD, [address] [address] Tory Zacarias MD, Specimen Comment: A courtesy copy of this report has been sent to [phone] Specimen Comment: [phone], [address] [address] PATHOLOGY RPT PROCEDURE Name: ERIC TERAN Room #: [facility] Rivera#: [id number] Admission: 01/15/21 Date of : 48 Discharge: Report #: [id number] Path Case #: [id number] Specimen Comment: [id number] Specimen Comment: Report sent to , DR LEWIS / DR DEL CASTILLO Performed at: [address], [place], [place] [id number] MD Jaden Daniel MD Phone: [phone]
== END | disposition home or self-care (01) ==
LOC: ULTRA 10:32
PROVIDERS: ATTEND Otolaryngology
DX: E04.1 Nontoxic single thyroid nodule (principal); I13.0 Hypertensive heart and chronic kidney disease with heart failure and stage 1 through stage 4 chronic kidney disease, or unspecified chronic kidney disease; E11.22 Type 2 diabetes mellitus with diabetic chronic kidney disease; N18.9 Chronic kidney disease, unspecified; I50.9 Heart failure, unspecified; E11.10 Type 2 diabetes mellitus with ketoacidosis without coma; E03.9 Hypothyroidism, unspecified; I48.91 Unspecified atrial fibrillation